=== PATIENT | male | born 1960 | race Caucasian/White ===

== ENCOUNTER 2022-03-24 17:54 | Emergency (ER) | payer OTHER ==
[~2022-03-24] VITALS: Ht 180.3 cm; Wt 102.1 kg
[2022-03-24] MEDS ORDERED: HYDROcodone/ACETAMIN 10-325 MG TAB PO ONE (18:00)
[2022-03-24] MEDS ORDERED: KETOROLAC TROMETHAMINE 60 MG/2 ML VIAL IM ONE (18:00)
[2022-03-24 18:02] VITALS: BP_SYST 116
--- NOTE | 2022-03-24 18:08 | NUR ---
bib bls pt hx dm, pacemaker cornoary artery disease, and kidney disease. began abot 1500 today upper back pain and left sided chest pain. states his entire body hurts. dr cr saw patient during triage and report to onofre jordan given
[2022-03-24 18:26] LABS: ANION GAP 13 (5-15); CALCIUM 8.7 mg/dL (8.4-11.0); CHLORIDE 100 mmol/L (98-107); CREATININE 2.95 mg/dL (0.55-1.30); GLUCOSE 238 mg/dL (70-99); POTASSIUM 4.2 mmol/L (3.5-5.1); SODIUM SERUM 134 mmol/L (136-145); UREA NITROGEN, BLOOD 68 mg/dL (8-21)
[2022-03-24 18:28] LABS: GFR AFRICAN AMERICAN 28 mL/min (>90)
[2022-03-24 18:35] LABS: ALANINE AMINOTRANSFERASE 44 U/L (12-78); ALBUMIN 2.6 g/dL (3.4-4.8); ASPARTATE AMINOTRANSFERASE 33 U/L (10-37); TOTAL BILIRUBIN 0.5 mg/dL (0.0-1.0)
[2022-03-24 19:10] LABS: BASOPHILS % (AUTO) 0.3 % (0.0-2.0); EOSINOPHILS % (AUTO) 0.2 % (0.0-4.0); HEMOGLOBIN 10.8 g/dL (14.0-18.0); LYMPHOCYTES # (AUTO) 0.3 K/uL (1.0-5.5); LYMPHOCYTES % (AUTO) 2.6 % (20.5-51.5); MEAN CORPUSCULAR HEMOGLOBIN 30 pg (27-31); MEAN CORPUSCULAR HGB CONC 34 % (32-36); MEAN CORPUSCULAR VOLUME 90 fL (79.0-98.0); MONOCYTES # (AUTO) 0.8 K/uL (0.0-1.0); NEUTROPHILS # (AUTO) 11.5 K/uL (1.8-7.7); NEUTROPHILS % (AUTO) 90.9 % (40.0-70.0); PLATELET COUNT (AUTO) 110 K/uL (130-430); RED BLOOD CELL COUNT(AUTO) 3.55 MIL/uL (4.2-6.2); RED CELL DISTRIBUTION WIDTH 13.8 % (9.0-15.0); WHITE BLOOD COUNT (AUTO) 12.7 K/uL (4.8-10.8)
--- NOTE | 2022-03-24 19:15 | NUR ---
ISRA PEDRAZA REPORT YARA BARRY RN. PT PENDING ADMISSION
[2022-03-24] MEDS ORDERED: VIT D (19:59)
[2022-03-24] MEDS ORDERED: SACU1TAB PO (19:59)
[2022-03-24] MEDS ORDERED: ROSU20TA2 PO (19:59)
[2022-03-24] MEDS ORDERED: CALC0.258 PO (19:59)
[2022-03-24] MEDS ORDERED: EMPA25TA PO (19:59)
[2022-03-24] MEDS ORDERED: HUM10VIA SQ (19:59)
[2022-03-24] MEDS ORDERED: GLIP10TA21 PO (19:59)
[2022-03-24] MEDS ORDERED: METO25TA3 PO (19:59)
[2022-03-24] MEDS ORDERED: ASA81 PO (19:59)
--- NOTE | 2022-03-24 21:27 | NUR ---
BP LOW. MEDICATED PER ER MD ORDERS. NS 1 LITER BOLUS STARTED. CONTINUED MONITORING. PT STATES "MY SUGER IS LOW". ACCUCHECK DONE
[2022-03-24] MEDS ORDERED: NACL 0.9% 1,000 ML IV ONE (21:30)
[2022-03-24 22:13] VITALS: BP_SYST 106
--- NOTE | 2022-03-24 22:15 | NUR ---
PT STABLE FOR TRANSFER TO [facility]. REPORT TO ISRA TERRY. REPORT TO RADIOGRAPHIC TECHNOLOGIST WITH MEDIC 1, UNIT# [id number]. ALL PAPERWORK, XRAY CD WITH RADIOGRAPHIC TECHNOLOGIST..TO AMB EXIT ON [place], ON MONITOR WITH CREW
== END 2022-03-24 22:13 | disposition short-term general hospital (02) ==
LOC: SED 17:54
DX: R07.89 Other chest pain (principal); M54.2 Cervicalgia; Z79.899 Other long term (current) drug therapy; Z20.822 Contact with and (suspected) exposure to COVID-19
CPT/HCPCS: 99285; 96374; 71045; 96361; 87426; 80053; 82962; 85025; 84484; 36415; 93005; J1885; J7030